=== PATIENT | female | born 1945 | race Hispanic/Latino ===

== ENCOUNTER 2024-03-05 21:36 | Inpatient (IN) | payer MEDICARE ==
[~2024-03-05] VITALS: Ht 157.5 cm; Wt 75.3 kg
[2024-03-05 21:39] VITALS: TEMP 98.4
[2024-03-05] MEDS: SODIUM CHLORIDE 0.9% 1000ML 1,000 ML IV STA (21:55)
[2024-03-05 22:18] LABS: BASOPHILS % 0.3 % (0.0-1.0); EOSINOPHILS # (AUTO) 0.1 (0.0-0.4); EOSINOPHILS % 1.4 % (0.0-6.0); HEMATOCRIT 42.4 % (34.2-44.1); HEMOGLOBIN 14.3 g/dL (12.0-16.0); LYMPHOCYTES # (AUTO) 1.8 (1.0-3.2); LYMPHOCYTES % 28.7 % (18.0-39.1); MEAN CORPUSCULAR HEMOGLOBIN 30.8 pg (28-32); MEAN CORPUSCULAR HGB CONC 33.7 g/dL (31-35); MEAN CORPUSCULAR VOLUME 91.2 fL (81-99); MONOCYTES # (AUTO) 0.5 (0.2-0.8); MONOCYTES % 7.2 % (4.4-11.3); NEUTROPHILS # (AUTO) 3.9 (2.1-6.9); NEUTROPHILS % 62.1 % (38.7-80.0); PLATELET COUNT 172 x10e3/uL (140-360); RED BLOOD COUNT 4.65 x10e6/uL (3.6-5.1); RED CELL DISTRIBUTION WIDTH 14.1 % (11.7-14.4); WHITE BLOOD COUNT 6.24 x10e3/uL (4.8-10.8)
[2024-03-05 22:24] LABS: INR 2.27; PROTHROMBIN TIME 26.5 seconds (11.9-14.5)
[2024-03-05 22:35] LABS: ALBUMIN 4.1 g/dL (3.5-5.0); ALBUMIN/GLOBULIN RATIO 1.2 (0.8-2.0); ANION GAP 14.6 mmol/L (8-16); BILIRUBIN,TOTAL 0.6 mg/dL (0.2-1.2); CALCIUM 9.3 mg/dL (8.4-10.2); CREATININE, SERUM 0.79 mg/dL (0.57-1.11); POTASSIUM 3.6 mmol/L (3.5-5.1); TOTAL PROTEIN 7.4 g/dL (6.5-8.1)
[2024-03-05 22:41] LABS: TROPONIN I 0.004 ng/mL (0-0.300)
[2024-03-05 22:51] LABS: BILIRUBIN,URINE NEGATIVE (NEGATIVE); CLARITY,URINE CLEAR (CLEAR); COLOR,URINE YELLOW (YELLOW); GLUCOSE, URINE NEGATIVE (NEGATIVE); KETONES,URINE NEGATIVE (NEGATIVE); LEUKOCYTE ESTERASE ,URINE NEGATIVE (NEGATIVE); NITRITE,URINE NEGATIVE (NEGATIVE); PH,URINE 7 (5 - 7); PROTEIN,URINE DIPSTICK NEGATIVE (NEGATIVE); URINE UROBILINOGEN 0.2 mg/dL (0.2 - 1)
[2024-03-05] MEDS ORDERED: IOPAMIDOL 370 MG/ML 100 ML INFUS..BTL INJ ONE (22:57)
[2024-03-05 23:03] LABS: BACTERIA,URINE MODERATE /HPF; EPITHELIAL CELLS,URINE FEW /LPF; MUCUS,URINE FEW (RARE)
[2024-03-05] MEDS: KETOROLAC TROMETHAMINE 30 MG/ML VIAL IV STA (23:24)
[2024-03-05] MEDS: FAMOTIDINE 20 MG/2 ML VIAL IV STA (23:53)
[2024-03-06] VITALS (12 sets, daily range): BP systolic 104–136; BP diastolic 53–71; PULSE 60–88; RESP 14–18; TEMP 97.4–100.2; O2SAT 94–100
[2024-03-06] MEDS ORDERED: Morphine 4mg INJECTION 4 MG/ML INJ IV PRN (01:30)
[2024-03-06] MEDS ORDERED: ONDANSETRON HCL INJ 2MG/ML 2ML 2 MG/ML VIAL IV PRN (01:30)
[2024-03-06] MEDS ORDERED: WARFARIN SODIUM5 MG PO (02:33)
[2024-03-06] MEDS ORDERED: LOSARTAN POTAS100 MG PO (02:33)
[2024-03-06] MEDS ORDERED: ATORVASTATIN CA40 MG PO (02:33)
[2024-03-06] MEDS ORDERED: ATENOLOL50 MG PO (02:33)
[2024-03-06] MEDS ORDERED: AMLODIPINE BESYL5 MG PO (02:33)
[2024-03-06 08:14] LABS: TROPONIN I 0.008 ng/mL (0-0.300)
[2024-03-06] MEDS: SODIUM CHLORIDE 0.9% 1000ML 1,000 ML IV SCH (12:52)
[2024-03-06] MEDS: ACETAMINOPHEN 325 MG TAB PO PRN (12:52)
[2024-03-06] MEDS: WARFARIN SOD 5 MG TAB PO SCH (17:02)
[2024-03-06] MEDS: ATENOLOL 50 MG TAB PO SCH (17:02)
[2024-03-06] MEDS: ATORVASTATIN 40 MG TAB PO SCH (21:05)
[2024-03-07] VITALS: BP 110/54; PULSE 60; RESP 17; TEMP 98.1; O2SAT 96
[2024-03-07 04:00] VITALS: BP 108/54; PULSE 66; RESP 18; TEMP 99.6; O2SAT 100
[2024-03-07 05:49] LABS: BASOPHILS % 0.2 % (0.0-1.0); EOSINOPHILS # (AUTO) 0.1 (0.0-0.4); EOSINOPHILS % 0.6 % (0.0-6.0); HEMATOCRIT 36.6 % (34.2-44.1); HEMOGLOBIN 12.4 g/dL (12.0-16.0); LYMPHOCYTES # (AUTO) 0.6 (1.0-3.2); LYMPHOCYTES % 6.7 % (18.0-39.1); MEAN CORPUSCULAR HEMOGLOBIN 30.7 pg (28-32); MEAN CORPUSCULAR HGB CONC 33.9 g/dL (31-35); MEAN CORPUSCULAR VOLUME 90.6 fL (81-99); MONOCYTES # (AUTO) 0.5 (0.2-0.8); MONOCYTES % 5.5 % (4.4-11.3); NEUTROPHILS # (AUTO) 7.2 (2.1-6.9); NEUTROPHILS % 86.6 % (38.7-80.0); RED BLOOD COUNT 4.04 x10e6/uL (3.6-5.1); RED CELL DISTRIBUTION WIDTH 14.6 % (11.7-14.4); WHITE BLOOD COUNT 8.33 x10e3/uL (4.8-10.8)
[2024-03-07 05:57] LABS: PLATELET COUNT 122 x10e3/uL (140-360)
[2024-03-07 06:26] LABS: ALBUMIN 2.9 g/dL (3.5-5.0); ALBUMIN/GLOBULIN RATIO 1.2 (0.8-2.0); ANION GAP 13.2 mmol/L (8-16); BILIRUBIN,TOTAL 4.9 mg/dL (0.2-1.2); CALCIUM 7.8 mg/dL (8.4-10.2); CREATININE, SERUM 0.71 mg/dL (0.57-1.11); TOTAL PROTEIN 5.4 g/dL (6.5-8.1)
[2024-03-07 06:33] LABS: POTASSIUM 3.2 mmol/L (3.5-5.1)
[2024-03-07 06:35] LABS: TROPONIN I 0.013 ng/mL (0-0.300)
[2024-03-07 08:12] VITALS: BP 112/51; PULSE 67; RESP 19; TEMP 98.9; O2SAT 100
[2024-03-07] MEDS ORDERED: ATENOLOL 50 MG TAB PO SCH (09:00)
[2024-03-07] MEDS: AMLODIPINE BESYLATE 5 MG TAB PO SCH (09:00)
[2024-03-07] MEDS: SODIUM CHLORIDE 0.9% 1000ML 1,000 ML IV SCH (09:21)
[2024-03-07] MEDS: LOSARTAN POTASSIUM 25 MG TAB PO SCH (09:21)
[2024-03-07 12:14] VITALS: BP 125/59; PULSE 67; RESP 18; TEMP 98.9; O2SAT 100
[2024-03-07 16:17] VITALS: BP 140/59; PULSE 70; RESP 20; TEMP 99.1; O2SAT 98
[2024-03-07 17:17] LABS: TROPONIN I 0.004 ng/mL (0-0.300)
[2024-03-07 18:18] LABS: INR 2.41; PROTHROMBIN TIME 27.8 seconds (11.9-14.5)
[2024-03-07 20:00] VITALS: BP 164/66; PULSE 68; RESP 20; TEMP 100.7; O2SAT 98
[2024-03-08] VITALS: BP 130/60; PULSE 72; RESP 18; TEMP 99.6; O2SAT 95
[2024-03-08 06:32] LABS: BASOPHILS % 0.2 % (0.0-1.0); EOSINOPHILS % 0.4 % (0.0-6.0); HEMOGLOBIN 12.3 g/dL (12.0-16.0); LYMPHOCYTES # (AUTO) 0.5 (1.0-3.2); LYMPHOCYTES % 10.9 % (18.0-39.1); MEAN CORPUSCULAR HEMOGLOBIN 30.5 pg (28-32); MEAN CORPUSCULAR HGB CONC 33.2 g/dL (31-35); MEAN CORPUSCULAR VOLUME 91.8 fL (81-99); MONOCYTES # (AUTO) 0.3 (0.2-0.8); MONOCYTES % 6.7 % (4.4-11.3); NEUTROPHILS # (AUTO) 3.9 (2.1-6.9); NEUTROPHILS % 81.4 % (38.7-80.0); PLATELET COUNT 109 x10e3/uL (140-360); RED BLOOD COUNT 4.03 x10e6/uL (3.6-5.1); RED CELL DISTRIBUTION WIDTH 14.5 % (11.7-14.4); WHITE BLOOD COUNT 4.79 x10e3/uL (4.8-10.8)
[2024-03-08 06:55] LABS: ALBUMIN 2.8 g/dL (3.5-5.0); ALBUMIN/GLOBULIN RATIO 1.1 (0.8-2.0); BILIRUBIN,TOTAL 3.6 mg/dL (0.2-1.2); CREATININE, SERUM 0.63 mg/dL (0.57-1.11); TOTAL PROTEIN 5.3 g/dL (6.5-8.1)
[2024-03-08 08:44] VITALS: BP 139/67; PULSE 69; RESP 18; TEMP 98.6; O2SAT 97
[2024-03-08] MEDS ORDERED: IPRATROPIUM BROMIDE 0.02% 2.5 ML NEB NEB PRN (09:00)
[2024-03-08 09:47] VITALS: BP 139/67; PULSE 69; RESP 18; TEMP 98.6; O2SAT 97
[2024-03-08 12:03] VITALS: BP 120/64; PULSE 66; RESP 18; TEMP 99.3; O2SAT 100
[2024-03-08 16:38] VITALS: BP 150/79; PULSE 72; RESP 18; TEMP 98.6; O2SAT 99
[2024-03-08 18:03] LABS: INR 2.3; PROTHROMBIN TIME 26.8 seconds (11.9-14.5)
[2024-03-08 20:00] VITALS: BP 144/71; PULSE 74; RESP 18; TEMP 99.3; O2SAT 97
[2024-03-08] MEDS: POTASSIUM CHLORIDE 20 MEQ TAB CR PO ONE (20:53)
[2024-03-08] MEDS: BISACODYL 5 MG TAB EC PO ONE ×2 (23:50)
[2024-03-09] VITALS (7 sets, daily range): BP systolic 124–150; BP diastolic 57–81; PULSE 57–73; RESP 16–17; TEMP 98–99.1; O2SAT 97–100
[2024-03-09] MEDS ORDERED: GADOBENATE DIMEGLUMINE 1 ML IV ONE (08:06)
[2024-03-09 15:51] LABS: HEPATITIS B SURFACE AG (P) Nonreactive; HEPATITIS C ANTIBODY Nonreactive
[2024-03-09 17:21] LABS: INR 1.85; PROTHROMBIN TIME 22.6 seconds (11.9-14.5)
[2024-03-09 17:31] LABS: ALBUMIN 3.3 g/dL (3.5-5.0); ANION GAP 11.5 mmol/L (8-16); BILIRUBIN,TOTAL 2.2 mg/dL (0.2-1.2); CALCIUM 8.4 mg/dL (8.4-10.2); CREATININE, SERUM 0.66 mg/dL (0.57-1.11); POTASSIUM 3.5 mmol/L (3.5-5.1); TOTAL PROTEIN 6.6 g/dL (6.5-8.1)
[2024-03-10] VITALS (7 sets, daily range): BP systolic 123–157; BP diastolic 57–77; PULSE 56–65; RESP 16–20; TEMP 98–99.2; O2SAT 97–100
[2024-03-10 05:45] LABS: BASOPHILS % 0.7 % (0.0-1.0); EOSINOPHILS # (AUTO) 0.1 (0.0-0.4); EOSINOPHILS % 1.5 % (0.0-6.0); HEMATOCRIT 38.7 % (34.2-44.1); HEMOGLOBIN 12.9 g/dL (12.0-16.0); LYMPHOCYTES # (AUTO) 0.9 (1.0-3.2); MEAN CORPUSCULAR HEMOGLOBIN 30.4 pg (28-32); MEAN CORPUSCULAR HGB CONC 33.3 g/dL (31-35); MEAN CORPUSCULAR VOLUME 91.1 fL (81-99); MONOCYTES # (AUTO) 0.5 (0.2-0.8); MONOCYTES % 12.6 % (4.4-11.3); NEUTROPHILS # (AUTO) 2.5 (2.1-6.9); NEUTROPHILS % 61.2 % (38.7-80.0); PLATELET COUNT 115 x10e3/uL (140-360); RED BLOOD COUNT 4.25 x10e6/uL (3.6-5.1); RED CELL DISTRIBUTION WIDTH 14.2 % (11.7-14.4); WHITE BLOOD COUNT 4.05 x10e3/uL (4.8-10.8)
[2024-03-10 06:13] LABS: ALBUMIN/GLOBULIN RATIO 1.1 (0.8-2.0); ANION GAP 12.2 mmol/L (8-16); BILIRUBIN,TOTAL 1.6 mg/dL (0.2-1.2); CALCIUM 8.3 mg/dL (8.4-10.2); CREATININE, SERUM 0.6 mg/dL (0.57-1.11); TOTAL PROTEIN 5.7 g/dL (6.5-8.1)
[2024-03-10 06:22] LABS: POTASSIUM 3.2 mmol/L (3.5-5.1)
[2024-03-10] MEDS ORDERED: HEPARIN SOD/DEXTROSE 5% 25000 UNIT/250 ML BAG IV SCH (11:45)
[2024-03-10 12:01] LABS: BASOPHILS % 0.5 % (0.0-1.0); EOSINOPHILS # (AUTO) 0.1 (0.0-0.4); EOSINOPHILS % 1.3 % (0.0-6.0); HEMATOCRIT 39.1 % (34.2-44.1); HEMOGLOBIN 13.2 g/dL (12.0-16.0); LYMPHOCYTES % 25.9 % (18.0-39.1); MEAN CORPUSCULAR HEMOGLOBIN 30.6 pg (28-32); MEAN CORPUSCULAR HGB CONC 33.8 g/dL (31-35); MEAN CORPUSCULAR VOLUME 90.7 fL (81-99); MONOCYTES # (AUTO) 0.5 (0.2-0.8); MONOCYTES % 12.9 % (4.4-11.3); NEUTROPHILS # (AUTO) 2.2 (2.1-6.9); NEUTROPHILS % 58.6 % (38.7-80.0); PLATELET COUNT 123 x10e3/uL (140-360); RED BLOOD COUNT 4.31 x10e6/uL (3.6-5.1); RED CELL DISTRIBUTION WIDTH 14.5 % (11.7-14.4); WHITE BLOOD COUNT 3.79 x10e3/uL (4.8-10.8)
[2024-03-10 12:40] LABS: INR 1.99; PROTHROMBIN TIME 23.9 seconds (11.9-14.5)
[2024-03-10] MEDS ORDERED: FENTANYL CITRATE/PF 100MCG/2 ML INJ ONE (13:44)
[2024-03-10] MEDS ORDERED: SODIUM CHLORIDE 0.9% 250ML 250 ML ONE (13:44)
[2024-03-10] MEDS: POTASSIUM CHLORIDE 20 MEQ TAB CR PO ONE (15:32)
[2024-03-10] MEDS: WARFARIN SOD 5 MG TAB PO SCH (17:16)
[2024-03-10] MEDS ORDERED: ONDANSETRON HCL 4 MG ORAL DISINTEGRATING TAB PO PRN (18:45)
[2024-03-11] VITALS: BP 134/58; PULSE 60; RESP 20; TEMP 98.1; O2SAT 99
[2024-03-11 04:00] VITALS: BP 132/65; PULSE 55; RESP 20; TEMP 98; O2SAT 99
[2024-03-11 06:14] LABS: BASOPHILS % 0.9 % (0.0-1.0); EOSINOPHILS # (AUTO) 0.1 (0.0-0.4); HEMATOCRIT 38.2 % (34.2-44.1); HEMOGLOBIN 12.9 g/dL (12.0-16.0); LYMPHOCYTES # (AUTO) 1.3 (1.0-3.2); LYMPHOCYTES % 28.3 % (18.0-39.1); MEAN CORPUSCULAR HEMOGLOBIN 30.6 pg (28-32); MEAN CORPUSCULAR HGB CONC 33.8 g/dL (31-35); MEAN CORPUSCULAR VOLUME 90.7 fL (81-99); MONOCYTES # (AUTO) 0.6 (0.2-0.8); MONOCYTES % 12.8 % (4.4-11.3); NEUTROPHILS # (AUTO) 2.5 (2.1-6.9); NEUTROPHILS % 55.1 % (38.7-80.0); PLATELET COUNT 146 x10e3/uL (140-360); RED BLOOD COUNT 4.21 x10e6/uL (3.6-5.1); RED CELL DISTRIBUTION WIDTH 14.4 % (11.7-14.4); WHITE BLOOD COUNT 4.45 x10e3/uL (4.8-10.8)
[2024-03-11 06:15] LABS: INR 2.25; PROTHROMBIN TIME 25.9 seconds (11.9-14.5)
[2024-03-11 06:16] LABS: PARTIAL THROMBOPLASTIN TIME 46.9 seconds (23.8-35.5)
[2024-03-11 06:32] LABS: ANION GAP 11.7 mmol/L (8-16); CALCIUM 8.7 mg/dL (8.4-10.2); CREATININE, SERUM 0.64 mg/dL (0.57-1.11); POTASSIUM 3.7 mmol/L (3.5-5.1)
[2024-03-11 07:00] VITALS: BP 132/65; PULSE 55; RESP 20; TEMP 98; O2SAT 99
[2024-03-11 08:10] VITALS: BP 139/66; PULSE 55; RESP 18; TEMP 98.1; O2SAT 98
[2024-03-11 11:36] VITALS: BP 149/86; PULSE 55; RESP 18; TEMP 98.8; O2SAT 99
[2024-03-11 15:47] VITALS: BP 124/72; PULSE 55; RESP 18; TEMP 98.9; O2SAT 99
== END 2024-03-11 20:06 | disposition home or self-care (01) | DRG 445 ==
LOC: ER 21:43 → ERHOLD 03-06 01:17 → MED/SURG 03-06 02:14 → MED/SURG3 03-06 06:26 → OBSVTOIN 03-07 08:49
PROVIDERS: ADMIT Internal Medicine; ATTEND Internal Medicine
PROC: 0DBW3ZX Excision of Peritoneum, Percutaneous Approach, Diagnostic (ICD-10-PCS; principal; 2024-03-10)
DX: K80.20 Calculus of gallbladder without cholecystitis without obstruction (principal); C49.A9 Gastrointestinal stromal tumor of other sites; D68.61 Antiphospholipid syndrome; R07.89 Other chest pain; R42 Dizziness and giddiness; R19.7 Diarrhea, unspecified; I10 Essential (primary) hypertension; I25.10 Atherosclerotic heart disease of native coronary artery without angina pectoris; I27.20 Pulmonary hypertension, unspecified; D35.02 Benign neoplasm of left adrenal gland; E78.5 Hyperlipidemia, unspecified; I48.91 Unspecified atrial fibrillation; Z79.01 Long term (current) use of anticoagulants; R74.8 Abnormal levels of other serum enzymes; E87.6 Hypokalemia; Z11.52 Encounter for screening for COVID-19; Z86.718 Personal history of other venous thrombosis and embolism; Z79.899 Other long term (current) drug therapy
CPT/HCPCS: 36415; 49180; 70450; 71045; 71260; 74183; 74470; 76705; 77012; 80048; 80053; 81001; 82248; 82550; 83690; 83880; 84484; 85025; 85610; 85730; 87040; 87086; 88305; 88342; 93005; 93306; 94799; 99252; 99284; G0378; J0696; J1885; J2405; J7030; J7050; Q9967; U0002

== ENCOUNTER 2024-06-23 06:51 | Inpatient (IN) | payer MEDICARE ==
[2024-06-17 11:01] LABS: BASOPHILS % 0.4 % (0.0-1.0); EOSINOPHILS # (AUTO) 0.1 (0.0-0.4); EOSINOPHILS % 1.3 % (0.0-6.0); HEMATOCRIT 40.1 % (34.2-44.1); HEMOGLOBIN 13.2 g/dL (12.0-16.0); LYMPHOCYTES # (AUTO) 1.4 (1.0-3.2); LYMPHOCYTES % 30.7 % (18.0-39.1); MEAN CORPUSCULAR HEMOGLOBIN 30.6 pg (28-32); MEAN CORPUSCULAR HGB CONC 32.9 g/dL (31-35); MONOCYTES # (AUTO) 0.3 (0.2-0.8); MONOCYTES % 7.4 % (4.4-11.3); NEUTROPHILS # (AUTO) 2.7 (2.1-6.9); PLATELET COUNT 171 x10e3/uL (140-360); RED BLOOD COUNT 4.31 x10e6/uL (3.6-5.1); RED CELL DISTRIBUTION WIDTH 13.1 % (11.7-14.4); WHITE BLOOD COUNT 4.46 x10e3/uL (4.8-10.8)
[2024-06-17 11:16] LABS: CREATININE, SERUM 0.7 mg/dL (0.57-1.11)
[2024-06-23] VITALS (14 sets, daily range): BP systolic 124–166; BP diastolic 62–93; PULSE 84–99; RESP 15–27; TEMP 97.5–98.2; O2SAT 93–97
[~2024-06-23] VITALS: Ht 160 cm; Wt 73.9 kg
[~2024-06-23 06:51] MED LIST: AMLODIPINE BESYL5 MG PO; ATENOLOL50 MG PO; ATORVASTATIN CA40 MG PO; LOSARTAN POTAS100 MG PO; WARFARIN SODIUM5 MG PO
[2024-06-23 08:20] LABS: INR 0.95; PROTHROMBIN TIME 13.3 seconds (11.9-14.5)
[2024-06-23 08:21] LABS: PARTIAL THROMBOPLASTIN TIME 33.7 seconds (23.8-35.5)
[2024-06-23] MEDS: LACTATED RINGER'S 1,000 ML ONE (08:29)
[2024-06-23] MEDS ORDERED: LIDOCAINE HCL 2% LOCAL INJ 5 ML SDV VIAL INJ ONE (08:46)
[2024-06-23] MEDS ORDERED: PROPOFOL IV EMULSION 10 MG/ML 20 ML VIAL ONE (08:46)
[2024-06-23] MEDS ORDERED: FENTANYL CITRATE/PF 100MCG/2 ML INJ ONE (08:47)
[2024-06-23] MEDS ORDERED: ROCURONIUM BROMIDE 1 ML IV ONE ×3 (08:47→11:23)
[2024-06-23] MEDS ORDERED: SODIUM CHLORIDE 0.9% INJ 10 ML VIAL ONE (08:49)
[2024-06-23] MEDS ORDERED: SUCCINYLCHOLINE CHLORIDE 20 MG/ML 10ML VIAL ONE (09:07)
[2024-06-23] MEDS ORDERED: EPHEDRINE SULFATE INJ 50 MG/ML VIAL ONE (10:17)
[2024-06-23] MEDS ORDERED: GLYCOPYRROLATE INJ 0.2 MG/ML VIAL ONE (10:17)
[2024-06-23] MEDS ORDERED: ACETAMINOPHEN 1000 MG/100 ML 100 ML IV ONE (10:23)
[2024-06-23] MEDS ORDERED: ONDANSETRON HCL INJ 2MG/ML 2ML 2 MG/ML VIAL IV PRN (12:45)
[2024-06-23] MEDS ORDERED: ACETAMINOPHEN 1000 MG/100 ML IV PRN (12:45)
[2024-06-23] MEDS: SODIUM CHLORIDE 0.9% 250ML IRRIG IR SCH (12:45)
[2024-06-23] MEDS: FENTANYL CITRATE/PF 100MCG/2 ML INJ ONE (12:50)
[2024-06-23] MEDS: HYDROMORPHONE 1MG/1ML INJ ONE (15:25)
[2024-06-23] MEDS: BUPIVACAINE LIPOSOME/PF 266 MG/20 ML IJ ONE (19:47)
[2024-06-23] MEDS: SODIUM CHLORIDE 0.9% 100 ML ONE (19:48)
[2024-06-23] MEDS: SODIUM CHLORIDE 0.9% 1000ML 1,000 ML IV SCH (20:52)
[2024-06-23] MEDS: HYDROMORPHONE 1MG/1ML INJ IV PRN (23:13)
[2024-06-24] VITALS (41 sets, daily range): BP systolic 115–170; BP diastolic 51–142; PULSE 74–97; RESP 14–23; TEMP 98.2–99.2; O2SAT 89–100
[2024-06-24] MEDS ORDERED: LOVENOX80 MG/0.8 SC (03:41)
[2024-06-24 06:58] LABS: BASOPHILS % 0.1 % (0.0-1.0); HEMATOCRIT 38.8 % (34.2-44.1); HEMOGLOBIN 12.9 g/dL (12.0-16.0); LYMPHOCYTES # (AUTO) 0.9 (1.0-3.2); LYMPHOCYTES % 8.6 % (18.0-39.1); MEAN CORPUSCULAR HEMOGLOBIN 30.6 pg (28-32); MEAN CORPUSCULAR HGB CONC 33.2 g/dL (31-35); MEAN CORPUSCULAR VOLUME 92.2 fL (81-99); MONOCYTES # (AUTO) 0.8 (0.2-0.8); MONOCYTES % 7.3 % (4.4-11.3); NEUTROPHILS # (AUTO) 8.6 (2.1-6.9); NEUTROPHILS % 83.8 % (38.7-80.0); PLATELET COUNT 143 x10e3/uL (140-360); RED BLOOD COUNT 4.21 x10e6/uL (3.6-5.1); WHITE BLOOD COUNT 10.23 x10e3/uL (4.8-10.8)
[2024-06-24 07:27] LABS: ALBUMIN/GLOBULIN RATIO 1.1 (0.8-2.0); ANION GAP 11.7 mmol/L (8-16); BILIRUBIN,TOTAL 0.7 mg/dL (0.2-1.2); CALCIUM 8.2 mg/dL (8.4-10.2); CREATININE, SERUM 0.65 mg/dL (0.57-1.11); POTASSIUM 3.7 mmol/L (3.5-5.1); TOTAL PROTEIN 5.7 g/dL (6.5-8.1)
[2024-06-24] MEDS: ATENOLOL 50 MG TAB PO SCH (09:00)
[2024-06-24] MEDS: HYDROMORPHONE 1MG/1ML INJ IV PRN (17:37)
[2024-06-24] MEDS: ENOXAPARIN SOD INJ 60 MG/0.6 ML SYR SC SCH (22:01)
[2024-06-25] VITALS (11 sets, daily range): BP systolic 132–157; BP diastolic 58–75; PULSE 62–98; RESP 16–18; TEMP 98.1–99; O2SAT 94–100
[2024-06-25 06:59] LABS: BASOPHILS % 0.2 % (0.0-1.0); EOSINOPHILS % 0.2 % (0.0-6.0); HEMATOCRIT 35.8 % (34.2-44.1); HEMOGLOBIN 12.3 g/dL (12.0-16.0); LYMPHOCYTES # (AUTO) 1.1 (1.0-3.2); LYMPHOCYTES % 13.4 % (18.0-39.1); MEAN CORPUSCULAR HEMOGLOBIN 30.5 pg (28-32); MEAN CORPUSCULAR HGB CONC 34.4 g/dL (31-35); MEAN CORPUSCULAR VOLUME 88.8 fL (81-99); MONOCYTES # (AUTO) 0.7 (0.2-0.8); MONOCYTES % 8.1 % (4.4-11.3); NEUTROPHILS # (AUTO) 6.2 (2.1-6.9); NEUTROPHILS % 77.6 % (38.7-80.0); PLATELET COUNT 148 x10e3/uL (140-360); RED BLOOD COUNT 4.03 x10e6/uL (3.6-5.1); RED CELL DISTRIBUTION WIDTH 13.1 % (11.7-14.4); WHITE BLOOD COUNT 8.01 x10e3/uL (4.8-10.8)
[2024-06-25 07:45] LABS: ALBUMIN 2.7 g/dL (3.5-5.0); ANION GAP 13.2 mmol/L (8-16); CALCIUM 8.2 mg/dL (8.4-10.2); CREATININE, SERUM 0.58 mg/dL (0.57-1.11); TOTAL PROTEIN 5.5 g/dL (6.5-8.1)
[2024-06-25 07:48] LABS: POTASSIUM 3.2 mmol/L (3.5-5.1)
[2024-06-26] VITALS (10 sets, daily range): BP systolic 136–155; BP diastolic 61–75; PULSE 75–93; RESP 16–20; TEMP 98.1–99.6; O2SAT 94–98
[2024-06-26 06:43] LABS: BASOPHILS % 0.3 % (0.0-1.0); EOSINOPHILS % 0.1 % (0.0-6.0); HEMOGLOBIN 11.1 g/dL (12.0-16.0); LYMPHOCYTES % 10.7 % (18.0-39.1); MEAN CORPUSCULAR HEMOGLOBIN 30.5 pg (28-32); MEAN CORPUSCULAR HGB CONC 32.6 g/dL (31-35); MEAN CORPUSCULAR VOLUME 93.4 fL (81-99); MONOCYTES # (AUTO) 0.8 (0.2-0.8); NEUTROPHILS # (AUTO) 7.1 (2.1-6.9); NEUTROPHILS % 79.2 % (38.7-80.0); PLATELET COUNT 133 x10e3/uL (140-360); RED BLOOD COUNT 3.64 x10e6/uL (3.6-5.1)
[2024-06-26 07:02] LABS: ALBUMIN 2.5 g/dL (3.5-5.0); ALBUMIN/GLOBULIN RATIO 0.8 (0.8-2.0); ANION GAP 15.8 mmol/L (8-16); BILIRUBIN,TOTAL 1.2 mg/dL (0.2-1.2); CREATININE, SERUM 0.56 mg/dL (0.57-1.11); TOTAL PROTEIN 5.5 g/dL (6.5-8.1)
[2024-06-26 07:34] LABS: POTASSIUM 2.8 mmol/L (3.5-5.1)
[2024-06-26] MEDS ORDERED: POTASSIUM CHLORIDE 20MEQ/100ML 1,000 ML IV ONE (08:30)
[2024-06-26] MEDS: KCL 20MEQ/.9 SOD CHL 1,000 ML IV ONE (09:27)
[2024-06-26] MEDS: BISACODYL 10 MG SUPP PR ONE (09:27)
[2024-06-26] MEDS ORDERED: HYDROMORPHONE 1MG/1ML INJ IV PRN (15:45)
[2024-06-26 16:23] LABS: CLARITY,URINE CLEAR (CLEAR); COLOR,URINE YELLOW (YELLOW)
[2024-06-26 16:24] LABS: BILIRUBIN,URINE SMALL (NEGATIVE); GLUCOSE, URINE NEGATIVE (NEGATIVE); KETONES,URINE >=160 (NEGATIVE); LEUKOCYTE ESTERASE ,URINE NEGATIVE (NEGATIVE); NITRITE,URINE NEGATIVE (NEGATIVE); PH,URINE 5.5 (5 - 7); PROTEIN,URINE DIPSTICK 1+ (NEGATIVE); URINE UROBILINOGEN 0.2 mg/dL (0.2 - 1)
[2024-06-26 16:39] LABS: BACTERIA,URINE MODERATE /HPF; EPITHELIAL CELLS,URINE MANY /LPF; MUCUS,URINE MODERATE (RARE); WBC,URINE (MAN) 0-5 /HPF (0-5)
[2024-06-26] MEDS ORDERED: HYDROCORTISONE SOD SUCCINATE 100 MG VIAL IV ONE (17:00)
[2024-06-26] MEDS: HYDROCORTISONE SOD SUCCINATE 100 MG VIAL IV SCH (17:15)
[2024-06-26] MEDS: KCL 20MEQ/.9 SOD CHL 1,000 ML IV SCH (17:16)
[2024-06-26] MEDS: HYDROCODONE/APAP 5MG-325MG TAB PO PRN (17:17)
[2024-06-26] MEDS: BISACODYL 10 MG SUPP PR SCH (20:44)
[2024-06-27] VITALS (10 sets, daily range): BP systolic 121–145; BP diastolic 48–73; PULSE 63–78; RESP 16–21; TEMP 97.7–99; O2SAT 92–100
[2024-06-27 08:09] LABS: ALBUMIN 2.4 g/dL (3.5-5.0); ALBUMIN/GLOBULIN RATIO 0.7 (0.8-2.0); ANION GAP 17.3 mmol/L (8-16); BILIRUBIN,TOTAL 0.9 mg/dL (0.2-1.2); CALCIUM 8.2 mg/dL (8.4-10.2); CREATININE, SERUM 0.55 mg/dL (0.57-1.11); POTASSIUM 3.3 mmol/L (3.5-5.1); TOTAL PROTEIN 5.7 g/dL (6.5-8.1)
[2024-06-27 08:59] LABS: BASOPHILS % 0.3 % (0.0-1.0); EOSINOPHILS # (AUTO) 0.1 (0.0-0.4); EOSINOPHILS % 1.2 % (0.0-6.0); LYMPHOCYTES # (AUTO) 0.9 (1.0-3.2); LYMPHOCYTES % 11.6 % (18.0-39.1); MEAN CORPUSCULAR HEMOGLOBIN 30.2 pg (28-32); MEAN CORPUSCULAR HGB CONC 33.3 g/dL (31-35); MEAN CORPUSCULAR VOLUME 90.7 fL (81-99); MONOCYTES # (AUTO) 0.7 (0.2-0.8); MONOCYTES % 9.5 % (4.4-11.3); NEUTROPHILS % 76.8 % (38.7-80.0); PLATELET COUNT 175 x10e3/uL (140-360); RED BLOOD COUNT 3.97 x10e6/uL (3.6-5.1); RED CELL DISTRIBUTION WIDTH 13.2 % (11.7-14.4); WHITE BLOOD COUNT 7.79 x10e3/uL (4.8-10.8)
[2024-06-27 09:28] LABS: INR 1.08; PROTHROMBIN TIME 14.7 seconds (11.9-14.5)
[2024-06-27 09:29] LABS: PARTIAL THROMBOPLASTIN TIME 36.5 seconds (23.8-35.5)
[2024-06-27] MEDS: ENOXAPARIN INJ 80 MG/0.8 ML SYR SC SCH (11:05)
[2024-06-27] MEDS: WARFARIN SOD 5 MG TAB PO SCH (16:55)
[2024-06-28] VITALS (9 sets, daily range): BP systolic 144–165; BP diastolic 56–72; PULSE 58–82; RESP 17–22; TEMP 97.7–98.4; O2SAT 96–100
[2024-06-28] MEDS ORDERED: HYDROCORTISONE SOD SUCCINATE 100 MG VIAL IV SCH (10:45)
[2024-06-29] VITALS (9 sets, daily range): BP systolic 143–164; BP diastolic 54–83; PULSE 56–72; RESP 17–20; TEMP 97.3–98.4; O2SAT 95–100
[2024-06-29 05:44] LABS: BASOPHILS % 0.2 % (0.0-1.0); EOSINOPHILS # (AUTO) 0.1 (0.0-0.4); EOSINOPHILS % 2.7 % (0.0-6.0); HEMATOCRIT 31.3 % (34.2-44.1); HEMOGLOBIN 10.8 g/dL (12.0-16.0); LYMPHOCYTES # (AUTO) 1.2 (1.0-3.2); LYMPHOCYTES % 26.8 % (18.0-39.1); MEAN CORPUSCULAR HEMOGLOBIN 29.9 pg (28-32); MEAN CORPUSCULAR HGB CONC 34.5 g/dL (31-35); MEAN CORPUSCULAR VOLUME 86.7 fL (81-99); MONOCYTES # (AUTO) 0.5 (0.2-0.8); MONOCYTES % 10.5 % (4.4-11.3); NEUTROPHILS # (AUTO) 2.6 (2.1-6.9); NEUTROPHILS % 59.1 % (38.7-80.0); PLATELET COUNT 231 x10e3/uL (140-360); RED BLOOD COUNT 3.61 x10e6/uL (3.6-5.1)
[2024-06-29 06:04] LABS: INR 1.04; PROTHROMBIN TIME 14.2 seconds (11.9-14.5)
[2024-06-29 06:22] LABS: ALBUMIN 2.4 g/dL (3.5-5.0); ALBUMIN/GLOBULIN RATIO 0.9 (0.8-2.0); ANION GAP 10.9 mmol/L (8-16); BILIRUBIN,TOTAL 0.5 mg/dL (0.2-1.2); CALCIUM 8.1 mg/dL (8.4-10.2); CREATININE, SERUM 0.53 mg/dL (0.57-1.11); TOTAL PROTEIN 5.2 g/dL (6.5-8.1)
[2024-06-29 06:24] LABS: POTASSIUM 2.9 mmol/L (3.5-5.1)
[2024-06-29] MEDS: HYDROCORTISONE SOD SUCCINATE 100 MG VIAL IV SCH (09:02)
[2024-06-29] MEDS: KCL 20 MEQ PACKET/ ORAL SOLN PO ONE ×2 (10:48→14:15)
[2024-06-29] MEDS: BISACODYL 10 MG SUPP PR ONE (14:15)
[2024-06-30] VITALS (7 sets, daily range): BP systolic 137–168; BP diastolic 59–81; PULSE 64–82; RESP 16–18; TEMP 98.6–98.9; O2SAT 95–99
[2024-06-30 05:51] LABS: BASOPHILS % 0.4 % (0.0-1.0); EOSINOPHILS # (AUTO) 0.2 (0.0-0.4); EOSINOPHILS % 3.2 % (0.0-6.0); HEMATOCRIT 34.4 % (34.2-44.1); LYMPHOCYTES # (AUTO) 1.4 (1.0-3.2); LYMPHOCYTES % 27.7 % (18.0-39.1); MEAN CORPUSCULAR HEMOGLOBIN 30.3 pg (28-32); MEAN CORPUSCULAR HGB CONC 34.9 g/dL (31-35); MEAN CORPUSCULAR VOLUME 86.9 fL (81-99); MONOCYTES # (AUTO) 0.4 (0.2-0.8); NEUTROPHILS # (AUTO) 2.9 (2.1-6.9); NEUTROPHILS % 59.1 % (38.7-80.0); PLATELET COUNT 243 x10e3/uL (140-360); RED BLOOD COUNT 3.96 x10e6/uL (3.6-5.1); RED CELL DISTRIBUTION WIDTH 13.2 % (11.7-14.4); WHITE BLOOD COUNT 4.98 x10e3/uL (4.8-10.8)
[2024-06-30 06:09] LABS: INR 1.07; PROTHROMBIN TIME 14.6 seconds (11.9-14.5)
[2024-06-30 06:10] LABS: ALBUMIN 2.7 g/dL (3.5-5.0); ANION GAP 13.5 mmol/L (8-16); BILIRUBIN,TOTAL 0.6 mg/dL (0.2-1.2); CALCIUM 8.7 mg/dL (8.4-10.2); CREATININE, SERUM 0.61 mg/dL (0.57-1.11); POTASSIUM 3.5 mmol/L (3.5-5.1); TOTAL PROTEIN 5.5 g/dL (6.5-8.1)
== END 2024-06-30 18:33 | disposition home or self-care (01) | DRG 330 ==
LOC: OR 06:51 → PACU V 13:27 → ICU 18:30 → MED/SURG3 06-24 23:30
PROVIDERS: ADMIT Surgery; ATTEND Surgery
PROC: 0FT40ZZ Resection of Gallbladder, Open Approach (ICD-10-PCS; 2024-06-23)
PROC: 0DBA0ZZ Excision of Jejunum, Open Approach (ICD-10-PCS; principal; 2024-06-23 09:34)
PROC: 07BB0ZX Excision of Mesenteric Lymphatic, Open Approach, Diagnostic (ICD-10-PCS; 2024-06-23 09:34)
DX: C49.A3 Gastrointestinal stromal tumor of small intestine (principal); C77.2 Secondary and unspecified malignant neoplasm of intra-abdominal lymph nodes; K80.10 Calculus of gallbladder with chronic cholecystitis without obstruction; K57.10 Diverticulosis of small intestine without perforation or abscess without bleeding; I10 Essential (primary) hypertension
CPT/HCPCS: 36415; 71046; 80048; 80053; 81001; 85025; 85610; 85730; 88304; 88307; 88309; 88342; 93005; 94799; J0330; J0694; J0696; J1171; J1650; J1720; J2003; J2470; J3480; J7030; J7050

== ENCOUNTER → 2024-08-15 | Outpatient (REF) | payer MEDICARE ==
[~2024-08-15] MED LIST changes: +LOVENOX80 MG/0.8 SC
== END ==
LOC: US 14:30
PROVIDERS: ATTEND Internal Medicine Medical Oncology
DX: R10.9 Unspecified abdominal pain (principal)
CPT/HCPCS: 74018; 76700